=== PATIENT | male | born 1965 ===

== ENCOUNTER 2017-02-10 15:21 | Outpatient (RCR) | payer OTHER | END 2017-02-12 | disposition home or self-care (01) | LOC: WCC 15:21 | DX: L97.823 Non-pressure chronic ulcer of other part of left lower leg with necrosis of muscle (principal); M79.605 Pain in left leg; L88 Pyoderma gangrenosum; Z86.718 Personal history of other venous thrombosis and embolism; K58.9 Irritable bowel syndrome, unspecified; Z82.49 Family history of ischemic heart disease and other diseases of the circulatory system; Z88.8 Allergy status to other drugs, medicaments and biological substances | CPT/HCPCS: 87070; 87181; 87205; G0463; 99204 ==

== ENCOUNTER 2017-03-03 14:46 | Outpatient (RCR) | payer OTHER | END 2017-03-14 | disposition home or self-care (01) | LOC: WCC 14:46 | DX: L97.823 Non-pressure chronic ulcer of other part of left lower leg with necrosis of muscle (principal); M79.605 Pain in left leg; L88 Pyoderma gangrenosum; Z88.8 Allergy status to other drugs, medicaments and biological substances ==

== ENCOUNTER 2017-03-17 14:30 | Outpatient (RCR) | payer OTHER ==
[~2017-03-17] VITALS: Ht 180.3 cm; Wt 77.1 kg
--- NOTE | 2017-04-07 16:09 | Infectious Diseases Prog Note ---
Assessment/Plan Problems: (1) CMV (cytomegalovirus) antibody positive Assessment & Plan: Serology from [facility] reviewed. Consistent with past infection. No further action at this time. (2) Antibiotic drug intolerance Assessment & Plan: Lists cipro and amoxicillin as allergies but has tolerated both repeatedly. (3) Pyoderma gangrenosum Assessment & Plan: Per dermatology. Not infected at this time. Subjective Allergies: Coded Allergies: AMOXICILLIN (Verified Allergy, Intermediate, Rash, 03/20/17) CIPROFLOXACIN (Verified Allergy, Intermediate, Rash, 03/20/17) KELLY SUE Apr 07, 2017 16:09
== END 2017-04-14 | disposition home or self-care (01) ==
LOC: WCC 14:30
DX: L88 Pyoderma gangrenosum (principal); Z88.1 Allergy status to other antibiotic agents; B25.9 Cytomegaloviral disease, unspecified; L97.823 Non-pressure chronic ulcer of other part of left lower leg with necrosis of muscle; M79.605 Pain in left leg; Z86.718 Personal history of other venous thrombosis and embolism; K58.9 Irritable bowel syndrome, unspecified
CPT/HCPCS: G0463 ×2

== ENCOUNTER 2017-05-19 13:50 | Outpatient (RCR) | payer OTHER | END 2017-06-14 | disposition home or self-care (01) | LOC: WCC 13:50 | DX: L97.823 Non-pressure chronic ulcer of other part of left lower leg with necrosis of muscle (principal); M79.605 Pain in left leg; L88 Pyoderma gangrenosum; Z86.718 Personal history of other venous thrombosis and embolism; Z88.8 Allergy status to other drugs, medicaments and biological substances ==